=== PATIENT | male | born 1975 | race Caucasian/White ===

== ENCOUNTER 2021-01-28 14:03 | Outpatient (CLI) | payer OTHER, SELFPAY ==
--- NOTE | ~2021-01-28 | MR_ITS ---
EXAMINATION: MR shoulder RT wo con DATE: 01/28/2021 14:57 INDICATION: Right shoulder pain post injury one month prior TECHNIQUE: Magnetic resonance imaging (MRI) of the right shoulder was performed without intravenous c ontrast. Sequences included axial PD-weighted FS FSE, coronal oblique PD-weighted FS FSE, coronal obl ique T2-weighted FS FSE, sagittal PD-weighted FS FSE, and sagittal T1-weighted SE. COMPARISON: None. FINDINGS: Coracoacromial arch: The acromion undersurface is curved in morphology (type II). The coracoacromial ligament is normal. M ild acromioclavicular osteoarthritis. Rotator cuff: The supraspinatus, infraspinatus and teres minor tendons are normal. The subscapularis tendon is norm al. Normal rotator cuff muscle bulk and signal. Biceps tendon, glenoid labrum and glenohumeral cartilage: Long head of the biceps tendon is normal. There is a tear at the 12:00-10:00 position of the posterio r superior glenoid labrum. There is an additional small tear at the 6:00 position of the inferior gle noid labrum. Tiny osteophytes along the anteroinferior rim of the glenoid. Glenohumeral cartilage is normal. Fluid: Physiologic amount of fluid in the glenohumeral joint and biceps tendon sheath. No loose osteochondra l bodies. Mild increased fluid signal in the subacromial/subdeltoid bursa consistent with mild bursit is. Bones: Normal marrow signal with no edema, fracture or pathologic marrow replacing process. IMPRESSION: 1. Small tear at the inferior glenoid labrum and more extensive tear at the posterior superior glenoi d labrum. 2. Mild subacromial/subdeltoid bursitis. 3. Mild acromioclavicular osteoarthritis. Reviewed, dictated and finalized at location A. IMPRESSION: 1. Small tear at the inferior glenoid labrum and more extensive tear at the pos terior superior glenoid labrum. 2. Mild subacromial/subdeltoid bursitis. 3. Mild acromioclavicular osteoarthritis.
== END 2021-01-28 14:04 | disposition home or self-care (01) ==
PROVIDERS: Visit Provider Nurse Practitioner Family
DX: M25.511 Pain in right shoulder (principal); S43.431A Superior glenoid labrum lesion of right shoulder, initial encounter; M75.51 Bursitis of right shoulder; M19.011 Primary osteoarthritis, right shoulder
CPT/HCPCS: 73221

== ENCOUNTER 2022-12-15 18:18 | Emergency (ER) | payer BC, SELFPAY ==
--- NOTE | ~2022-12-15 | XR_ITS ---
EXAM: XR foot RT min 3V DATE: 12/15/2022 18:46 HISTORY: right heel pain x 2 days no injury . COMPARISON: None available. FINDINGS: Normal mineralization. No fracture or dislocation. No lytic or blastic lesion. Joint space s are maintained. No erosion or periosteal change. Soft tissues within normal limits. IMPRESSION: No acute osseous finding in the right foot. Reviewed, dictated and finalized at location K.
[2022-12-15 18:31] VITALS: BP 139/94; PULSE 96; RESP 16; TEMP 36.4; O2SAT 100
[2022-12-15 18:35] VITALS: BP 139/94; PULSE 96; RESP 16; TEMP 36.4; O2SAT 100
--- NOTE | 2022-12-15 19:03 | ED.GENADULT ---
HPI - General Adult General Chief complaint: Extremity Injury, Lower Stated complaint: Injured right foot Time Seen by Provider: 12/15/22 19:10 Source: patient, RN notes reviewed and old records reviewed Mode of arrival: ambulatory (placed in wheelchair on arrival) Limitations: no limitations History of Present Illness HPI narrative: 47 year old male accompanied by presents to express care with complaints of right heel pain for the past 2 days.Patient reports of no known injury to foot thinks he might of stepped off ladder wrong bur is unsure. Patient reports that he can not apply any weight to his heel area.Patient reports that he has had gout in the past but was in his hands and he is on daily Allopurinol. Patient has no posterior heel pain or any pain to frontal aspect of his foot. Patient does have history of rheumatoid arthritis. MD complaint: right heel pain Onset (ago): day(s) (2) Location: right and lower extremity (heel region of foot) Severity: severe Severity scale (1-10): 10 Quality: other (soreness) Pain Consistency: other (with ambulation) Exacerbating factors: other (weight bearing) Related Data Home Medications Medication Instructions Recorded Confirmed trazodone 150 mg tablet 150 mg PO BID 03/15/20 12/15/22 allopurinol 200 mg tablet 200 mg PO DAILY 03/20/22 12/15/22 folic acid 1 mg tablet 1 mg PO DAILY 04/02/22 12/15/22 meloxicam 15 mg tablet 15 mg PO DAILY 04/02/22 12/15/22 methotrexate sodium 5 mg tablet 2.5 mg PO WEEKLY 04/02/22 12/15/22 prednisone 5 mg tablet 5 mg PO DAILY 04/02/22 12/15/22 tramadol 50 mg tablet 50 mg PO Q6H PRN Moderate Pain 04/02/22 12/15/22 (Scale Score 5-6) cariprazine 1.5 mg capsule 1.5 mg PO DAILY 12/15/22 12/15/22 (Vraylar) fluticasone furoate 100 25 inh inhalation DAILY 12/15/22 12/15/22 mcg-vilanterol 25 mcg/dose inhalation powder (Breo Ellipta) lamotrigine 25 mg tablet 25 mg PO DAILY 12/15/22 12/15/22 naltrexone 4.5 mg capsule 1.5 mg PO DAILY 12/15/22 12/15/22 Allergies Allergy/AdvReac Type Severity Reaction Status Date / Time No Known Allergies Allergy Verified 12/15/22 18:30 Review of Systems Review of Systems: CONSTITUTIONAL: Denies fever, chills, or sweats. EYES: Denies visual changes, redness, or discharge. ENT: Denies rhinorrhea, congestion, sore throat, or otalgia. CARDIOVASCULAR: Denies chest pain, palpitations, or edema. RESPIRATORY: Denies cough or dyspnea. GASTROINTESTINAL: Denies abdominal pain, nausea, vomiting, or diarrhea. GENITOURINARY: Denies dysuria or hematuria. SKIN: Denies rash or itching. MUSCULOSKELETAL: Denies back pain, Positive for right heel pain or myalgia. NEUROLOGIC: Denies headache, numbness, or weakness. PSYCHIATRIC: Denies anxiety or depression. All systems reviewed & are unremarkable except as noted in HPI and below PMFSH Past Medical History Medical History (Updated 12/16/22 @ 14:49 by Monica Hill NP) Hyperuricemia Hypotestosteronism Infection of tooth Inflammatory polyarthropathy Internal derangement of left shoulder MOOK (obstructive sleep apnea) Rheumatoid arthritis Right inguinal hernia Umbilical hernia without obstruction and without gangrene Surgical History Surgical History (Updated 12/16/22 @ 14:48 by Monica Hill NP) H/O right inguinal hernia repair Family History Family History Mother Family history of malignant neoplasm of breast in first degree relative Father Family history of malignant neoplasm of urinary bladder Other Depression Social History Social History Smoking packs per day: 1 Smoking cigarettes per day: 20.0 Years smoked: 13 Smoking pack-years: 13.00 Smoking status: Former smoker Tobacco type: cigarettes Smoking end date: 05/18/12 Alcohol intake: current Alcohol use details: rare Substance use: never Substance use type: does not us
== END 2022-12-15 19:26 | disposition home or self-care (01) ==
PROVIDERS: Emergency Provider Registered Nurse; PCP Nurse Practitioner Family
DX: M79.671 Pain in right foot (principal); Z87.891 Personal history of nicotine dependence; M06.9 Rheumatoid arthritis, unspecified; M10.9 Gout, unspecified
CPT/HCPCS: 73630; 99213; G0463

== ENCOUNTER 2023-01-08 11:58 | Emergency (ER) | payer BC, SELFPAY ==
[2023-01-08 12:07] VITALS: BP 127/96; PULSE 98; RESP 18; TEMP 36.7; O2SAT 97
--- NOTE | 2023-01-08 12:12 | ED.DENTAL ---
HPI - Dental/Oral General Chief complaint: Dental/Oral Stated complaint: Toothache;Right jaw swollen Time Seen by Provider: 01/08/23 12:12 Source: patient Mode of arrival: ambulatory History of Present Illness HPI Narrative: 47-year-old male presented for complaint of right upper dental pain and gum swelling worsening over the past 3 days. At the onset he took 2 leftover steroids from the Medrol [facility] which helps with inflammation. Not taking anything else for pain. Endorses 'bad teeth' and hx occasional dental abscesses. He denies nausea vomiting, fevers or chills. He has a dentist who offered appt for next week. MD Complaint: tooth pain Related Data Home Medications Medication Instructions Recorded Confirmed allopurinol 200 mg tablet 200 mg PO DAILY 03/20/22 01/08/23 folic acid 1 mg tablet 1 mg PO DAILY 04/02/22 01/08/23 meloxicam 15 mg tablet 15 mg PO DAILY 04/02/22 01/08/23 methotrexate sodium 5 mg tablet 2.5 mg PO WEEKLY 04/02/22 01/08/23 cariprazine 1.5 mg capsule 1.5 mg PO DAILY 12/15/22 01/08/23 (Vraylar) fluticasone furoate 100 25 inh inhalation DAILY 12/15/22 01/08/23 mcg-vilanterol 25 mcg/dose inhalation powder (Breo Ellipta) lamotrigine 25 mg tablet 25 mg PO DAILY 12/15/22 01/08/23 naltrexone 4.5 mg capsule 1.5 mg PO DAILY 12/15/22 01/08/23 Allergies Allergy/AdvReac Type Severity Reaction Status Date / Time No Known Allergies Allergy Verified 01/08/23 12:13 Review of Systems Review of Systems: CONSTITUTIONAL: Denies body aches, fever, chills ENT: Denies rhinorrhea, congestion, sore throat, or otalgia. Reports dental pain CARDIOVASCULAR: Denies chest pain, palpitations RESPIRATORY: Denies cough or dyspnea. SKIN: Denies rash, itching, or wounds. MUSCULOSKELETAL: Denies myalgia. NEUROLOGIC: Denies headache, numbness, tingling, or weakness. PMF Past Medical History Medical History Hyperuricemia Hypotestosteronism Infection of tooth Inflammatory polyarthropathy Internal derangement of left shoulder MOOK (obstructive sleep apnea) Rheumatoid arthritis Right inguinal hernia Umbilical hernia without obstruction and without gangrene Surgical History Surgical History H/O right inguinal hernia repair Family History Family History Mother Family history of malignant neoplasm of breast in first degree relative Father Family history of malignant neoplasm of urinary bladder Other Depression Social History Social History Smoking packs per day: 1 Smoking cigarettes per day: 20.0 Years smoked: 13 Smoking pack-years: 13.00 Smoking status: Former smoker Tobacco type: cigarettes Smoking end date: 05/18/12 Alcohol intake: current Alcohol use details: rare Substance use: never Substance use type: does not use Living arrangements: with family Occupation/Education: occupation Gender identity (if verbalized by the patient): Male Comments At time of signature, I have reviewed and agree with nursing past medical, surgical, social and family history unless otherwise noted. Please see nursing chart for further information. There is no relevant family history pertinent to the presenting complaint Exam Narrative: GENERAL: Appears in pain; no acute distress. HEAD: Normocephalic, atraumatic. EYES: EOMI. No redness or drainage. Conjunctivae normal. ENT: Dental pain location of #5 broken tooth with abscess, gum swelling and tenderness; poor dentition throughout Mucous membranes pink and moist. TMs normal bilaterally. Throat normal. Uvula midline. NECK: Normal AROM. No lymphadenopathy.No induration below mandible. CHEST: No respiratory distress. Clear to auscultation. HEART: Regular rate and rhythm. No murmur appreciated. SKIN: Warm, dry,
== END 2023-01-08 12:27 | disposition home or self-care (01) ==
PROVIDERS: Emergency Provider Nurse Practitioner Family; PCP Nurse Practitioner Family
DX: K04.7 Periapical abscess without sinus (principal); M06.9 Rheumatoid arthritis, unspecified; Z87.891 Personal history of nicotine dependence
CPT/HCPCS: 99213; G0463

== ENCOUNTER 2023-05-22 17:14 | Emergency (ER) | payer BC, SELFPAY ==
--- NOTE | 2023-05-22 17:17 | ED.GENADULT ---
HPI - General Adult General Chief complaint: Extremity Injury, Upper Stated complaint: R HAND PAIN/SWELLING Time Seen by Provider: 05/22/23 17:43 Source: patient, RN notes reviewed and old records reviewed Mode of arrival: ambulatory Limitations: no limitations History of Present Illness HPI narrative: 48-year-old male presents to the [facility] complaints of right hand swelling and pain. Pain started earlier this afternoon. 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 Denies any trauma just was painting lot today. Swelling noted to the dorsal hand dorsal wrist. Decreased range of motion secondary to pain and swelling. No treatment prior to arrival Treatments prior to arrival: none Related Data Home Medications Medication Instructions Recorded Confirmed allopurinol 200 mg tablet 200 mg PO DAILY 03/20/22 05/22/23 folic acid 1 mg tablet 1 mg PO DAILY 04/02/22 05/22/23 cariprazine 1.5 mg capsule 1.5 mg PO DAILY 12/15/22 05/22/23 (Vraylar) fluticasone furoate 100 25 inh inhalation DAILY 12/15/22 05/22/23 mcg-vilanterol 25 mcg/dose inhalation powder (Breo Ellipta) lamotrigine 25 mg tablet 25 mg PO DAILY 12/15/22 05/22/23 naltrexone 4.5 mg capsule 1.5 mg PO DAILY 12/15/22 05/22/23 naproxen 500 mg tablet 500 mg PO DAILY 05/22/23 05/22/23 Allergies Allergy/AdvReac Type Severity Reaction Status Date / Time No Known Allergies Allergy Verified 05/22/23 17:25 Review of Systems Review of Systems: All systems reviewed & are unremarkable except as noted in HPI and below Constitutional: Constitutional: Reports no additional constitutional complaints Eyes: Eyes: Reports no additional eye complaints ENT: Reports system reviewed and no additional complaints, except as documented Cardiovascular: Cardiovascular: Reports no additional cardiovascular complaints, Denies chest pain and Denies dyspnea Respiratory: Respiratory: Reports no additional respiratory complaints, Denies chest congestion, Denies cough and Denies dyspnea Gastrointestinal: Gastrointestinal: Reports no additional gastrointestinal complaints, Denies abdominal pain, Denies nausea and Denies vomiting Musculoskeletal: Musculoskeletal: Reports as per HPI, Reports arthralgias and Reports joint swelling Integumentary/Breasts: Skin/Breast: Reports system reviewed and no additional complaints, except as docu Neurologic: Reports system reviewed and no additional complaints, except as documented Psychiatric: Psychiatric: Reports no additional psychiatric complaints Allergic/Immunologic: Allergic/Immunologic: Reports no additional allergic/immunologic complaints PMFSH Past Medical History Medical History Hyperuricemia Hypotestosteronism Infection of tooth Inflammatory polyarthropathy Internal derangement of left shoulder MOOK (obstructive sleep apnea) Rheumatoid arthritis Right inguinal hernia Umbilical hernia without obstruction and without gangrene Surgical History Surgical History H/O right inguinal hernia repair Family History Family History Mother Family history of malignant neoplasm of breast in first degree relative Father Family history of malignant neoplasm of urinary bladder Other Depression Social History Social History Smoking packs per day: 1 Smoking cigarettes per day: 20.0 Years smoked: 13 Smoking pack-years: 13.00 Smoking status: Former smoker Tobacco type: cigarettes Smoking end date: 05/18/12 Alcohol intake: current Alcohol use details: rare Substance use: never Substance use type: does not use Living arrangements: with family Occupation/Education: occupation Gender identity (if verbalized by the patient): Male Comments At the time of my signature, I reviewed and agree with the jesus
[2023-05-22 17:33] VITALS: BP 136/93; PULSE 95; RESP 16; TEMP 37.2; O2SAT 98
== END 2023-05-22 17:59 | disposition home or self-care (01) ==
PROVIDERS: Emergency Provider Nurse Practitioner; PCP Nurse Practitioner Family
DX: M25.531 Pain in right wrist (principal); M25.431 Effusion, right wrist; Z87.891 Personal history of nicotine dependence; M06.9 Rheumatoid arthritis, unspecified
CPT/HCPCS: 99213; G0463

== ENCOUNTER 2023-07-22 16:32 | Emergency (ER) | payer BC, SELFPAY ==
[2023-07-22 16:38] VITALS: BP 124/98; PULSE 101; RESP 16; TEMP 36.4; O2SAT 98
--- NOTE | 2023-07-22 16:38 | ED.URI ---
HPI - URI/Sore Throat General Chief Complaint: Upper Respiratory Infection Stated Complaint: COUGH/congestion Time Seen by Provider: 07/22/23 16:33 Source: patient Mode of arrival: ambulatory Limitations: no limitations History of Present Illness HPI Narrative: Newton is a 48-year-old male patient presenting to the clinic today with complaints of cough and congestion x4 weeks. He reports he was diagnosed with influenza a 3 weeks ago. Has had a linger cough ever since with some congestion. Denies any shortness of breath or chest pain. Denies fever, chills, or body aches. States he is coughing all day but cough goes away at nighttime when he is sleeping. MD elicited complaint: nasal congestion and other (Cough) Related Data Home Medications Medication Instructions Recorded Confirmed allopurinol 200 mg tablet 200 mg PO DAILY 03/20/22 07/22/23 folic acid 1 mg tablet 1 mg PO DAILY 04/02/22 07/22/23 cariprazine 1.5 mg capsule 1.5 mg PO DAILY 12/15/22 07/22/23 (Vraylar) fluticasone furoate 100 25 inh inhalation DAILY 12/15/22 07/22/23 mcg-vilanterol 25 mcg/dose inhalation powder (Breo Ellipta) lamotrigine 25 mg tablet 25 mg PO DAILY 12/15/22 07/22/23 naltrexone 4.5 mg capsule 3 mg PO DAILY 12/15/22 07/22/23 naproxen 500 mg tablet 500 mg PO DAILY 05/22/23 07/22/23 Allergies Allergy/AdvReac Type Severity Reaction Status Date / Time No Known Allergies Allergy Verified 07/22/23 16:44 Review of Systems Review of Systems: Pertinent positives per HPI. Patient denies any fever, chills, rash, headache, visual changes, dizziness, shortness of breath, chest pain, palpitations, nausea, vomiting, diarrhea, constipation, abdominal pain, or any urinary issues. [facility] Past Medical History Medical History Hyperuricemia Hypotestosteronism Infection of tooth Inflammatory polyarthropathy Internal derangement of left shoulder MOOK (obstructive sleep apnea) Rheumatoid arthritis Right inguinal hernia Umbilical hernia without obstruction and without gangrene Surgical History Surgical History H/O right inguinal hernia repair Family History Family History Mother Family history of malignant neoplasm of breast in first degree relative Father Family history of malignant neoplasm of urinary bladder Other Depression Social History Social History Smoking packs per day: 1 Smoking cigarettes per day: 20.0 Years smoked: 13 Smoking pack-years: 13.00 Smoking status: Former smoker Tobacco type: cigarettes Smoking end date: 05/18/12 Alcohol intake: current Alcohol use details: rare Substance use: never Substance use type: does not use Living arrangements: with family Occupation/Education: occupation Gender identity (if verbalized by the patient): Male Comments At the time of my signature, I reviewed and agree with the nursing past medical, surgical, social, and family history. There is no relevant family history pertinent to the patient complaint. Exam Narrative: General: Well-developed, well nourished, in no apparent distress Head: Normocephalic, atraumatic Eyes: Pupils equally round and reactive to light bilaterally, EOM intact, sclera and conjunctive clear, no discharge, lids normal Ears: TMs intact and clear, ear canals clear, no drainage, grossly hearing normal. Nose: Nares patent, no discharge, no inflammation, no sinus tenderness. Mouth: Oral pharynx without lesions or masses, good dentition, MMM. Neck: Supple, trachea midline, no enlargement of anterior or posterior cervical nodes, no thyroid masses or goiter palpable. Cardio: Regular rate and rhythm, s1 and s2 normal, no murmur appreciated. Resp: Clear to auscultation bilaterally, no rhonchi, ral
== END 2023-07-22 16:53 | disposition home or self-care (01) ==
PROVIDERS: Emergency Provider Nurse Practitioner Family; PCP Nurse Practitioner Family
DX: R05.9 Cough, unspecified (principal); Z87.891 Personal history of nicotine dependence; M06.9 Rheumatoid arthritis, unspecified
CPT/HCPCS: 99213; G0463

== ENCOUNTER 2023-08-04 15:17 | Emergency (ER) | payer BC, SELFPAY ==
--- NOTE | ~2023-08-04 | CT_ITS ---
EXAMINATION: CTA chest PE protocol DATE: 08/04/2023 17:13 INDICATION: cp, sob, elev dimer TECHNIQUE: Computed tomography angiography (CTA) of the chest was performed with 100 mL Omnipaque-350 intravenous contrast timed to evaluate the pulmonary arteries. Coronal maximum intensity projection 3D-reconstructions were created by the technologist. The dose-length product (DLP) was 417.14 mGy-cm. Automated exposure control and iterative reconstruction technique were employed. COMPARISON: X-ray chest, same date. FINDINGS: Lung parenchyma and airways: Mild diffuse patchy areas of groundglass opacities in the lungs. Patent airways. Pleura: Unremarkable. Thoracic inlet, axillae and chest wall: Unremarkable. Thoracic aorta: No significant dilation. No dissection. Mediastinum: Normal. Heart and pericardium: Normal. Coronary artery calcifications: Absent. Upper abdomen: No significant finding. Bones: No acute osseous finding. Pulmonary arteries: Study quality: Adequate. No pulmonary emboli detected. IMPRESSION: No CT evidence of acute pulmonary embolus. Mild diffuse patchy ground glass opacities in the lungs, may represent mild edema or mosaic attenuati on (as can be seen with asthma, bronchiolitis obliterans, and hypersensitivity pneumonitis). Reviewed, dictated and finalized at location K. IMPRESSION: No CT evidence of acute pulmonary embolus. Mild diffuse patchy ground glass opacities in the lungs, may represent mild jade ma or mosaic attenuation (as can be seen with asthma, bronchiolitis obliterans, and hypersensitivity pneumonitis).
--- NOTE | ~2023-08-04 | XR_ITS ---
EXAMINATION: XR chest 2V 08/04/2023 15:46 INDICATION: Cough. Influenza A. PROCEDURE: 2 view chest COMPARISON: 03/20/2022 FINDINGS: The lungs are clear. The cardiomediastinal silhouette is within normal limits. There are no pleural effusions. There is no pneumothorax suspected. IMPRESSION: 1: NO ACUTE CARDIOPULMONARY DISEASE. Reviewed, dictated and finalized at location A.
[2023-08-04 15:21] VITALS: BP 137/87; PULSE 107; RESP 18; TEMP 36.3; O2SAT 98
--- NOTE | 2023-08-04 15:25 | ED.URI ---
HPI - URI/Sore Throat General Chief Complaint: Upper Respiratory Infection <DANNY Isaacs Last Filed: 08/04/23 15:42> Stated Complaint: cough, congestion <DANNY Isaacs Last Filed: 08/04/23 15:42> Time Seen by Provider: 08/04/23 15:25 <DANNY Isaacs Last Filed: 08/04/23 15:42> Focused HPI: Patient is a 48 y/o male who presents the ED with report of cough and congestion. Patient reports he was diagnosed with influenza in June. He has had a persistent occasionally productive cough since then. He also complains of chest congestion, chest pain - worse with movement and coughing, difficulty breathing and feeling short of breath - also worse with exertion, sore throat. Denies recent sick contacts. Denies lower extremity pain or swelling. Denies fevers. GENERAL: Well-appearing, well-nourished, and in no acute distress. HEAD: Normocephalic, atraumatic. CHEST: Clear to auscultation. ?No respiratory distress. No significant focal lung sounds. HEART: Tachycardic with regular rhythm.? NEURO: ?Alert and oriented x3. Patient screened in triage and initial orders placed.? ?Additional care and disposition to be based upon?diagnostic testing and treatment. <Alethea Bundy PA-C - Last Filed: 08/04/23 15:42> Source: patient <DANNY Isaacs Last Filed: 08/04/23 15:42> Mode of arrival: ambulatory <DANNY Isaacs Last Filed: 08/04/23 15:42> Limitations: no limitations <DANNY Isaacs Last Filed: 08/04/23 15:42> History of Present Illness HPI Narrative: 48-year-old male with reported history of type 2 diabetes, asthma and a intermittent unknown lung disease presents to emergency department with his at bedside for cough and congestion for 2 weeks. Patient was diagnosed with influenza in June of 2023. Patient states he had a cough lingered for few weeks after that, it went away for few weeks and has now come back. He states it has been constant and he is coughing up productive mucus. Reports he went to an urgent care in another ER prior to his arrival today and was prescribed steroids and benzonatate without improvement. He is currently on a steroid taper. He denies fevers, nausea or vomiting. He reports some shortness of breath. Also states he has chest pain that is substernal but only occurs when he is coughing. Is nonradiating. He reports a sore throat which she is attributing to coughing. Denies lower extremity edema or pain, recent surgeries or hospitalizations. he has a crossbow maker at [facility], Dr. Bailey, who performed PFT on him in February 2023. Patient states this PFT was normal and was prescribed an albuterol inhaler for his symptoms. Patient states he has multiple available inhalers and does not need a refill and he has been using them as directed. He is scheduled to see Dr. Pena in 6 days for follow-up. <Debbie Biggs PA-C - Last Filed: 08/04/23 18:21> Related Data Home Medications: Home Medications Medication Instructions Recorded Confirmed allopurinol 200 mg tablet 200 mg PO DAILY 03/20/22 07/22/23 folic acid 1 mg tablet 1 mg PO DAILY 04/02/22 07/22/23 cariprazine 1.5 mg capsule 1.5 mg PO DAILY 12/15/22 07/22/23 (Vraylar) fluticasone furoate 100 25 inh inhalation DAILY 12/15/22 07/22/23 mcg-vilanterol 25 mcg/dose inhalation powder (Breo Ellipta) lamotrigine 25 mg tablet 25 mg PO DAILY 12/15/22 07/22/23 naltrexone 4.5 mg capsule 3 mg PO DAILY 12/15/22 07/22/23 naproxen 500 mg tablet 500 mg PO DAILY 05/22/23 07/22/23 <DANNY Isaacs Last Filed: 08/04/23 15:42> Allergies/Adverse Reactions: Allergies Allergy/AdvReac Type Severity Reaction Status Date / Time No Known Allergies Allergy Verified 08/04/23 16:49 <DANNY Isaacs Last Filed: 08/04/23 15:42> Review of Systems Review of Systems: CONSTITUTIONAL
--- NOTE | 2023-08-04 15:27 | ECG_ITS ---
Measurements Intervals [place] Rate: 103 P: 38 OK: 127 QRS: 87 QRSD: 91 T: 77 QT: 314 QTc: 411 Interpretive Statements SINUS TACHYCARDIA POSSIBLE LEFT ATRIAL ENLARGEMENT BORDERLINE T WAVE ABNORMALITY- HIGH LATERAL LEADS BASELINE ARTIFACT- I, III, AVR, AVL, AVF BORDERLINE ECG NO PREVIOUS ECG AVAILABLE FOR COMPARISON Electronically Signed On 08-04-2023 16:27:08 CDT by Toby Faust D.O.
[2023-08-04 16:05] LABS: Basophils Absolute Auto 0.1 K/mm3 (0.0-0.1); Basophils Percent Auto 0.6 % (0.2-1.2); Eosinophils Absolute Auto 0.4 K/mm3 (0-0.3); Eosinophils Percent Auto 1.7 % (0-4.4); Hematocrit 46.5 % (42.0-52.0); Hemoglobin 14.9 g/dL (14.0-18.0); Immature Granulocyte Absolute 0.26 K/mm3 (0.00-0.031); Immature Granulocyte Percent A 1.3 % (0-0.5); Lymphocytes Absolute Auto 3.38 K/mm3 (0.9-3.2); Lymphocytes Percent Auto 16.4 % (18.3-44.2); Mean Corpuscular Hemoglobin 27.7 pg (26-34); Mean Corpuscular Volume 86.4 fl (80-100); Mean Platelet Volume 9.4 fl (7.4-10.4); Monocytes Absolute Auto 1.4 K/mm3 (0.1-0.6); Monocytes Percent Auto 6.7 % (2.6-8.5); Neutrophils Absolute Auto 15.2 K/mm3 (1.3-6.7); Neutrophils Percent Auto 73.3 % (45.5-73.1); Platelet Count Result 374 k/mm3 (150-375); Red Blood Count 5.38 M/mm3 (4.6-6.20); White Blood Count 20.7 K/mm3 (4.5-10.0)
[2023-08-04 16:08] LABS: Alanine Aminotransferase 28 U/L (6-50); Albumin Level 4.1 g/dL (3.5-5.1); Alkaline Phosphatase 98 U/L (38-126); Anion Gap 9 mmol/L (8-16); Aspartate Amino Transferase 23 U/L (17-59); Bilirubin,Total 0.7 mg/dL (0.2-1.3); Blood Urea Nitrogen 15 mg/dL (9-20); Calcium 9.4 mg/dL (8.4-10.2); Carbon Dioxide 28 mmol/L (22-30); Chloride 98 mmol/L (98-107); Estimated CRCL calculation 88 ml/min; Estimated Glomerular Filt Rate > 60; Glucose 262 mg/dL (65-110); Potassium 3.6 mmol/L (3.4-5.0); Sodium 135 mmol/L (137-145)
[2023-08-04 16:17] LABS: INR 0.9; Prothrombin Time 12.3 Seconds (11.1-14.7)
[2023-08-04 16:18] LABS: Partial Thromboplastin Time 30.4 Seconds (22.3-36.8)
[2023-08-04 16:20] LABS: Troponin I < 0.012 ng/mL (0.000-0.034)
[2023-08-04 16:25] LABS: D Dimer 1.47 ug/mL (<0.48)
[2023-08-04 16:48] VITALS: BP 121/98; PULSE 113; RESP 16; O2SAT 97
[2023-08-04 16:49] LABS: Influenza A QL RT-PCR Negative (Negative); Influenza B QL RT-PCR Negative (Negative); RSV RNA, RT-PCR Negative (Negative); SARS-CoV-2 RNA PCR Negative (Negative)
[2023-08-04 16:50] VITALS: O2SAT 98
[2023-08-04 18:03] VITALS: BP 130/87; PULSE 97; RESP 18; TEMP 36.9; O2SAT 97
[2023-08-04] MEDS: AZITHROMYCIN 250 MG TABLET 500 MG PO (18:05)
[2023-08-04] MEDS: AMOXICILLIN/CLAVULANATE K 875-125 MG TAB 1 TABLET PO (18:05)
== END 2023-08-04 18:30 | disposition home or self-care (01) ==
PROVIDERS: Physician Assistant; Emergency Provider Physician Assistant; PCP Nurse Practitioner Family
DX: J15.9 Unspecified bacterial pneumonia (principal); J98.4 Other disorders of lung; Z20.822 Contact with and (suspected) exposure to COVID-19; J45.909 Unspecified asthma, uncomplicated; E11.9 Type 2 diabetes mellitus without complications; G47.33 Obstructive sleep apnea (adult) (pediatric); M06.9 Rheumatoid arthritis, unspecified; Z87.891 Personal history of nicotine dependence
CPT/HCPCS: 36415; 71046; 71275; 80053; 84484; 85025; 85380; 85610; 85730; 87637; 93005; 99284; A9270; Q9967

== ENCOUNTER 2023-09-28 13:54 | Emergency (ER) | payer BC, SELFPAY ==
--- NOTE | ~2023-09-28 | CT_ITS ---
EXAMINATION: CT abdomen pelvis w con DATE: 09/28/2023 15:17 INDICATION: Diffuse abdominal pain and vomiting TECHNIQUE: Computed tomography (CT) of the abdomen and pelvis was performed with 100 mL Omnipaque-350 intravenous contrast. Automated exposure control and iterative reconstruction technique were employe d. The dose-length product was 768.49 mGy-cm. COMPARISON: None FINDINGS: Lung bases are clear. Heart size is normal. No pericardial or pleural effusion. Diffuse hepatic steat osis. Gallbladder, spleen, pancreas, bilateral adrenal glands and kidneys are normal. Bowels includin g the appendix are normal. Small fat-containing umbilical hernia. Small fat-containing left inguinal hernia. Bladder is normal. No free intraperitoneal gas or fluid. No pathologically enlarged abdominal or pelvic lymphadenopathy. Mild lumbar levocurvature with mild spondylosis. IMPRESSION: 1. No acute intra-abdominal/pelvic process. 2. Diffuse hepatic steatosis. 3. Small fat-containing umbilical and left inguinal hernias. Reviewed, dictated and finalized at location B.
[2023-09-28 14:00] VITALS: BP 117/86; PULSE 110; RESP 15; TEMP 36.5; O2SAT 98
--- NOTE | 2023-09-28 14:40 | ED.ABDPAIN ---
HPI - Abdominal Pain General Chief Complaint: Abdominal Pain Stated Complaint: abd pain, n/v Time Seen by Provider: 09/28/23 14:26 Source: patient, RN notes reviewed and old records reviewed Mode of arrival: ambulatory Limitations: no limitations History of Present Illness HPI narrative: This is a 48 year old male who presents for evaluation of abdominal pain with nausea and vomiting. He developed diffuse abdominal pain 1 week ago. He states it initially felt like a dull ache. His pain waxes and wanes. He has been having nausea, vomiting and dry heaves. He also reports small episodes of diarrhea. He reports fever 100.9 F a few days ago. Denies radiation of pain. Currently his pain is 1/10. This morning his pain was severe from 3 am to 7am Related Data Home Medications Medication Instructions Recorded Confirmed allopurinol 200 mg tablet 200 mg PO DAILY 03/20/22 07/22/23 folic acid 1 mg tablet 1 mg PO DAILY 04/02/22 07/22/23 cariprazine 1.5 mg capsule 1.5 mg PO DAILY 12/15/22 07/22/23 (Vraylar) fluticasone furoate 100 25 inh inhalation DAILY 12/15/22 07/22/23 mcg-vilanterol 25 mcg/dose inhalation powder (Breo Ellipta) lamotrigine 25 mg tablet 25 mg PO DAILY 12/15/22 07/22/23 naltrexone 4.5 mg capsule 3 mg PO DAILY 12/15/22 07/22/23 naproxen 500 mg tablet 500 mg PO DAILY 05/22/23 07/22/23 Allergies Allergy/AdvReac Type Severity Reaction Status Date / Time No Known Allergies Allergy Verified 09/28/23 14:42 Review of Systems Constitutional: Constitutional: Denies weakness Cardiovascular: Cardiovascular: Denies syncope, Denies rapid heart rate, Denies irregular heart rhythm, Denies leg edema and Denies dyspnea Respiratory: Respiratory: Denies chest congestion, Denies hemoptysis, Denies excessive phlegm production and Denies dyspnea Gastrointestinal: Gastrointestinal: Reports abdominal pain, Reports bloating, Denies hematochezia, Reports diarrhea, Reports nausea and Reports vomiting Genitourinary: Genitourinary: Denies hematuria, Denies dysuria, Denies penile discharge and Denies testicular pain Musculoskeletal: Musculoskeletal: Denies joint swelling, Denies loss of height and Denies muscle weakness Neurologic: Denies syncope, Denies focal weakness and Denies weakness PMFSH Past Medical History Medical History Hyperuricemia Hypotestosteronism Infection of tooth Inflammatory polyarthropathy Internal derangement of left shoulder MOOK (obstructive sleep apnea) Rheumatoid arthritis Right inguinal hernia Umbilical hernia without obstruction and without gangrene Surgical History Surgical History H/O right inguinal hernia repair Family History Family History Mother Family history of malignant neoplasm of breast in first degree relative Father Family history of malignant neoplasm of urinary bladder Other Depression Social History Social History Smoking packs per day: 1 Smoking cigarettes per day: 20.0 Years smoked: 13 Smoking pack-years: 13.00 Smoking status: Former smoker Tobacco type: cigarettes Smoking end date: 05/18/12 Alcohol intake: current Alcohol use details: rare Substance use: never Substance use type: does not use Living arrangements: with family Occupation/Education: occupation Gender identity (if verbalized by the patient): Male Exam Const: General: no acute distress and alert Nutritional Appearance: well nourished Orientation/consciousness: patient oriented x3 HENMT: Head: normal to inspection Eyes: EOM: EOMs intact bilaterally Resp: Effort & Inspection: normal respiratory effort Auscultation: clear to auscultation bilaterally Cardio: Rate: tachycardic Rhythm: regular rhythm Heart sounds: no murmurs GI: Inspection: di
[2023-09-28 14:45] LABS: Basophils Percent Auto 0.3 % (0.2-1.2); Eosinophils Absolute Auto 0.2 K/mm3 (0-0.3); Eosinophils Percent Auto 1.7 % (0-4.4); Hematocrit 48.4 % (42.0-52.0); Hemoglobin 16.1 g/dL (14.0-18.0); Immature Granulocyte Absolute 0.13 K/mm3 (0.00-0.031); Immature Granulocyte Percent A 0.9 % (0-0.5); Lymphocytes Absolute Auto 2.51 K/mm3 (0.9-3.2); Mean Corpuscular HGB Conc 33.3 g/dl (32-36); Mean Corpuscular Hemoglobin 28.7 pg (26-34); Mean Corpuscular Volume 86.3 fl (80-100); Mean Platelet Volume 9.5 fl (7.4-10.4); Monocytes Absolute Auto 0.8 K/mm3 (0.1-0.6); Monocytes Percent Auto 5.8 % (2.6-8.5); Neutrophils Absolute Auto 10.2 K/mm3 (1.3-6.7); Neutrophils Percent Auto 73.3 % (45.5-73.1); Platelet Count Result 400 k/mm3 (150-375); Red Blood Count 5.61 M/mm3 (4.6-6.20); Red Cell Distribution Width 13.8 % (11.5-14.5); White Blood Count 13.9 K/mm3 (4.5-10.0)
[2023-09-28] MEDS: SODIUM CHLORIDE 0.9% IV 1,000 ML 999 ML IV CONT (14:55)
[2023-09-28] MEDS: ONDANSETRON INJ 4 MG/2 ML VIAL IV PUSH (14:55)
[2023-09-28 15:02] LABS: Alanine Aminotransferase 32 U/L (6-50); Albumin Level 4.4 g/dL (3.5-5.1); Alkaline Phosphatase 63 U/L (38-126); Anion Gap 9 mmol/L (4-12); Aspartate Amino Transferase 29 U/L (17-59); Blood Urea Nitrogen 5 mg/dL (9-20); Calcium 9.4 mg/dL (8.4-10.2); Carbon Dioxide 25 mmol/L (22-30); Chloride 104 mmol/L (98-107); Estimated CRCL calculation 96 ml/min; Estimated Glomerular Filt Rate > 60; Glucose 188 mg/dL (65-110); Lipase 114 U/L (23-300); Sodium 138 mmol/L (137-145)
[2023-09-28 16:27] LABS: Lactic Acid Reflex 1.8 mmol/L (0.7-2.0)
[2023-09-28 16:28] LABS: Appearance Urine Clear (Clear); Bilirubin Urine Negative (Negative); Blood Urine Negative (Negative); Color Urine Yellow (Yellow); Glucose Urine UA Negative (Negative); Ketones Urine Negative (Negative); Leukocyte Esterase Ur Negative LEU/UL (Negative); Nitrate Urine Negative (Negative); Protein Urine Negative (Negative); Urobilinogen Urine 0.2 mg/dL (<2.0); pH Urine 5.5 (5.0-9.0)
[2023-09-28 17:12] LABS: Add Urine Microscopic? NO
[2023-09-28 17:35] VITALS: BP 113/80; PULSE 93; RESP 16; O2SAT 96
== END 2023-09-28 17:35 | disposition home or self-care (01) ==
PROVIDERS: Emergency Medicine; Emergency Provider General Practice; PCP Nurse Practitioner Family
DX: R11.2 Nausea with vomiting, unspecified (principal); R19.7 Diarrhea, unspecified; G47.33 Obstructive sleep apnea (adult) (pediatric); Z87.891 Personal history of nicotine dependence
CPT/HCPCS: 36415; 74177; 80053; 81003; 83605; 83690; 85025; 96361; 96374; 99284; J2405; J7030; Q9967

== ENCOUNTER 2023-11-02 11:45 | Outpatient (CLI) | payer BC, SELFPAY ==
[2023-11-02 12:22] LABS: Basophils Absolute Auto 0.1 K/mm3 (0.0-0.1); Basophils Percent Auto 0.5 % (0.2-1.2); Eosinophils Absolute Auto 0.4 K/mm3 (0-0.3); Eosinophils Percent Auto 2.8 % (0-4.4); Hematocrit 45.3 % (42.0-52.0); Hemoglobin 14.8 g/dL (14.0-18.0); Immature Granulocyte Absolute 0.14 K/mm3 (0.00-0.031); Lymphocytes Percent Auto 13.4 % (18.3-44.2); Mean Corpuscular HGB Conc 32.7 g/dl (32-36); Mean Corpuscular Hemoglobin 28.1 pg (26-34); Mean Corpuscular Volume 86.1 fl (80-100); Mean Platelet Volume 9.3 fl (7.4-10.4); Monocytes Absolute Auto 0.7 K/mm3 (0.1-0.6); Monocytes Percent Auto 5.4 % (2.6-8.5); Neutrophils Absolute Auto 10.3 K/mm3 (1.3-6.7); Neutrophils Percent Auto 76.9 % (45.5-73.1); Platelet Count Result 340 k/mm3 (150-375); Red Blood Count 5.26 M/mm3 (4.6-6.20); Red Cell Distribution Width 13.2 % (11.5-14.5); White Blood Count 13.4 K/mm3 (4.5-10.0)
[2023-11-02 13:20] LABS: Alanine Aminotransferase 30 U/L (6-50); Albumin Level 4.3 g/dL (3.5-5.1); Alkaline Phosphatase 77 U/L (38-126); Anion Gap 10 mmol/L (4-12); Aspartate Amino Transferase 26 U/L (17-59); Bilirubin,Total 0.8 mg/dL (0.2-1.3); Blood Urea Nitrogen 9 mg/dL (9-20); CRP 2.1 mg/dL (<1.0); Calcium 9.4 mg/dL (8.4-10.2); Carbon Dioxide 24 mmol/L (22-30); Chloride 103 mmol/L (98-107); Estimated Glomerular Filt Rate > 60; Glucose 241 mg/dL (65-110); Potassium 3.8 mmol/L (3.4-5.0); Sodium 137 mmol/L (137-145)
[2023-11-02 13:21] LABS: Iron 35 ug/dL (49-181)
[2023-11-02 13:33] LABS: Percent Iron Saturation 10 % (20-50)
[2023-11-02 15:50] LABS: Erythrocyte Sedimentation Rate 8 mm/hr (0-20)
== END 2023-11-02 11:46 | disposition home or self-care (01) ==
PROVIDERS: Nurse Practitioner Family; PCP Nurse Practitioner Family; Visit Provider Internal Medicine Hematology & Oncology
DX: D72.829 Elevated white blood cell count, unspecified (principal); D50.9 Iron deficiency anemia, unspecified
CPT/HCPCS: 36415; 80053; 82728; 83540; 83550; 85025; 85652; 86140; 88184

== ENCOUNTER 2024-04-01 10:21 | Emergency (ER) | payer BC, SELFPAY ==
--- NOTE | ~2024-04-01 | XR_ITS ---
EXAMINATION: XR knee LT min 4V DATE: 04/01/2024 11:42 INDICATION: Left knee pain. Fall. TECHNIQUE: 4 views of left knee were obtained. COMPARISON: None. FINDINGS: Alignment is normal. No fracture. Joint spaces are normal. No knee joint effusion. IMPRESSION: 1. Normal left knee. Reviewed, dictated and finalized at location A. LIANCE ADMINISTRATOR IMPRESSION: 1. Normal left knee.
--- NOTE | ~2024-04-01 | XR_ITS ---
EXAMINATION: XR foot LT min 3V DATE: 04/01/2024 11:42 INDICATION: Left foot pain. Fall. TECHNIQUE: 4 views of left foot were obtained. COMPARISON: None. FINDINGS: Alignment is normal. Fracture. There is mild osteoarthritis of first metatarsophalangeal [place] int. IMPRESSION: 1. Mild osteoarthritis of first metatarsophalangeal joint. Reviewed, dictated and finalized at location A. ED PRODUCTS FINISHER
--- NOTE | ~2024-04-01 | XR_ITS ---
EXAMINATION: XR hip LT min 3V w AP pelvis DATE: 04/01/2024 11:42 INDICATION: Left hip pain. Fall. TECHNIQUE: An anteroposterior view of the pelvis and 3 views of left hip were obtained. COMPARISON: CT abdomen and pelvis 09/28/2023. FINDINGS: Alignment is normal. No fracture. Joint spaces are normal. IMPRESSION: 1. No fracture. Reviewed, dictated and finalized at location A. RWRITING INTERN IMPRESSION: 1. No fracture.
--- NOTE | ~2024-04-01 | XR_ITS ---
EXAMINATION: XR lumbar spine 2-3V DATE: 04/01/2024 11:42 INDICATION: Left-sided low back pain. Fall. TECHNIQUE: 3 views of lumbar spine were obtained. COMPARISON: None. FINDINGS: There is 6 degrees levocurvature of lumbar spine. There are Schmorl's nodes at multiple lev els. There is mild chronic anterior wedging of T12 and L1 vertebral bodies, likely physiologic. Inter vertebral disc heights are normal. There is multilevel mild facet joint osteoarthritis. At L5-S1, the re is severe facet joint osteoarthritis on the left. IMPRESSION: 1. Mild lumbar spondylosis. Reviewed, dictated and finalized at location A. ETIC TESTER IMPRESSION: 1. Mild lumbar spondylosis.
[2024-04-01 10:25] VITALS: BP 120/80; PULSE 110; RESP 20; TEMP 36.4; O2SAT 100
--- NOTE | 2024-04-01 11:13 | ED_ITS ---
HPI - Extremity Problem General Chief complaint: Extremity Problem,Nontraumatic Stated complaint: L leg/foot pain Time Seen by Provider: 04/01/24 11:00 Source: patient Mode of arrival: wheelchair Limitations: no limitations History of Present Illness HPI Narrative: This is a 48-year-old male that presents to the emergency department for left hip pain. 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 No known injuries. When he woke up today he started to experience pain in his left lateral / posterior hip, left knee, as well as left foot. Denies edema, erythema, decreased range of motion or numbness. Related Data Home Medications Medication Instructions Recorded Confirmed allopurinol 200 mg tablet 200 mg PO DAILY 03/20/22 07/22/23 folic acid 1 mg tablet 1 mg PO DAILY 04/02/22 07/22/23 cariprazine 1.5 mg capsule 1.5 mg PO DAILY 12/15/22 07/22/23 (Vraylar) fluticasone furoate 100 25 inh inhalation DAILY 12/15/22 07/22/23 mcg-vilanterol 25 mcg/dose inhalation powder (Breo Ellipta) lamotrigine 25 mg tablet 25 mg PO DAILY 12/15/22 07/22/23 naltrexone 4.5 mg capsule 3 mg PO DAILY 12/15/22 07/22/23 naproxen 500 mg tablet 500 mg PO DAILY 05/22/23 07/22/23 Allergies Allergy/AdvReac Type Severity Reaction Status Date / Time No Known Allergies Allergy Verified 04/01/24 12:23 Review of Systems Review of Systems: CONSTITUTIONAL: Denies fever MUSCULOSKELETAL: Reports back pain, joint pain, and myalgia. NEUROLOGIC: Denies numbness, or weakness. All systems reviewed & are unremarkable except as noted in HPI and below PMFSH Past Medical History Medical History Hyperuricemia Hypotestosteronism Infection of tooth Inflammatory polyarthropathy Internal derangement of left shoulder MOOK (obstructive sleep apnea) Rheumatoid arthritis Right inguinal hernia Umbilical hernia without obstruction and without gangrene Surgical History Surgical History H/O right inguinal hernia repair Family History Family History Mother Family history of malignant neoplasm of breast in first degree relative Father Family history of malignant neoplasm of urinary bladder Other Depression Social History Social History Smoking packs per day: 1 Smoking cigarettes per day: 20.0 Years smoked: 13 Smoking pack-years: 13.00 Smoking status: Former smoker Tobacco type: cigarettes Smoking end date: 05/18/12 Alcohol intake: current Alcohol use details: rare Substance use: never Substance use type: does not use Living arrangements: with family Occupation/Education: occupation Gender identity (if verbalized by the patient): Male Exam Narrative: GENERAL: Well-appearing, well-nourished, and in no acute distress. HEAD: Normocephalic, atraumatic. EYES: EOMI. CHEST: No respiratory distress. HEART: Regular rate EXTREMITIES: Normal range of motion. No edema. Normal DP pulse SKIN: Warm, dry, no rash. NEURO: No focal deficits. Alert and oriented x3. PSYCH: Normal mood and affect Course Course Emergency Course: patient updated on his workup and agrees with plan of care Vital Signs Vital signs: Vital Signs Temperature 97.5 F L 04/01/24 10:25 Pulse Rate 110 H 04/01/24 10:25 Respiratory Rate 20 04/01/24 10:25 Blood Pressure 120/80 04/01/24 10:25 Pulse Oximetry 100 04/01/24 10:25 Oxygen Delivery Room Air 04/01/24 10:25 Temperature 97.7 F 04/01/24 11:35 Pulse Rate 66 04/01/24 11:35 Respiratory Rate 18 04/01/24 11:35 Blood Pressure 158/94 H 04/01/24 11:35 Pulse Oximetry 99 04/01/24 11:35 Oxygen Delivery Room Air 04/01/24 10:25 MDM - Extremity (Nontraumatic) MDM Narrative Medical decision making narrative: Patient presents to the ER for musculoskeletal pain following work yesterday having 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 He is neurovascularly intact. x- rays of the left knee and hip/ pelvis are normal. Left foot x-ray shows mild osteoarthritis at the 1st MTP joint. Lumbar spine x-ray shows mild lumbar spondylosis. patient updated on his workup and agrees with plan of care. He is to follow up with primary provider. He was given warnings to return to the ER Differential Diagnosis Differential diagnosis: Likely other (muscle strain, sciatica, osteoarthritis) Imaging Data Radiologist's impression: ITS Impressions Knee X-Ray 04/01/24 11:43 IMPRESSION: 1. Normal left knee. Foot X-Ray 04/01/24 11:44 IMPRESSION: 1. Mild osteoarthritis of first metatarsophalangeal joint. Hip/Pelvis X-Ray 04/01/24 11:46 IMPRESSION: 1. No fracture. Lumbar Spine X-Ray 04/01/24 11:48 IMPRESSION: 1. Mild lumbar spondylosis. Critical Care Time Critical Care Time Critical Care Time: No Discharge Plan Discharge Clinical Impression: Acute left-sided low back pain Qualifiers: Sciatica presence: with sciatica Sciatica laterality: sciatica of left side Qualified Code(s): M54.42 - Lumbago with sciatica, left side Patient Disposition: Home, Self-Care Condition: Improved Instructions: Osteoarthritis (ED), Back Pain (ED) Additional Instructions: Return to the ER if you experience weakness, numbness, bowel/bladder incontinence, or any other symptoms that are concerning to you Rest, use ice/heat, take anti-inflammatories (Aleve, Ibuprofen, Naproxen, etc) or Tylenol as needed for pain as well as muscle relaxer (Flexeril) as needed for pain. Muscle relaxers can make you drowsy, do not drive if you take this. Lidocaine patch as needed for pain Follow up with your primary care doctor Prescriptions: New cyclobenzaprine 10 mg tablet 10 mg PO TID PRN (Reason: muscle spasm) Qty: 14 0RF lidocaine 5 % adhesive patch,medicated 1 patch topical DAILY PRN (Reason: pain) Qty: 15 0RF Rx Instructions: leave on most painful area for up to 12 hrs No Action fluticasone furoate-vilanterol [Breo Ellipta] 100-25 mcg/dose blister with device 25 inh INHALATION DAILY Vraylar 1.5 mg capsule 1.5 mg PO DAILY lamotrigine 25 mg tablet 25 mg PO DAILY naltrexone 4.5 mg Capsule 3 mg PO DAILY ibuprofen 800 mg tablet 800 mg PO TID PRN (Reason: pain) Qty: 30 0RF benzonatate 200 mg capsule 200 mg PO TID 7 Days Qty: 21 0RF albuterol sulfate 90 mcg/actuation HFA aerosol inhaler 2 puff inhalation Q4-6H PRN (Reason: shortness of breath or wheezing) 30 Days Qty: 8.5 0RF prednisone 10 mg tablet 10 mg PO DAILY Qty: 30 0RF Rx Instructions: 60mg po daily on day 1, 40mg po daily on days 2-4, 30mg po daily on days 5-6, 20mg po daily on days 7-8, 10mg po daily on days 9-10 naproxen 500 mg tablet 500 mg PO DAILY allopurinol 200 mg tablet 200 mg PO DAILY folic acid 1 mg tablet 1 mg PO DAILY amoxicillin-pot clavulanate 875-125 mg tablet 1 tablet PO Q12H Qty: 14 0RF azithromycin 250 mg tablet 250 mg PO DAILY 4 Days Qty: 4 0RF Rx Instructions: start on day 2 of therapy ondansetron 4 mg tablet,disintegrating 4 mg PO Q6H PRN (Reason: nausea and vomiting) Qty: 14 0RF Follow-up/Referrals: FRANDY,RIVKA CARVER [Primary Care Provider] - Stand Alone Forms: Work/School Release IP
[2024-04-01 11:35] VITALS: BP 158/94; PULSE 66; RESP 18; TEMP 36.5; O2SAT 99
[2024-04-01] MEDS: KETOROLAC 30 MG/ML VIAL (*BKC) IM (11:45)
[2024-04-01] MEDS: ACETAMINOPHEN 500 MG TABLET 1000 MG PO (11:45)
[2024-04-01 12:33] VITALS: BP 122/86; PULSE 99; RESP 16; TEMP 36.4; O2SAT 95
== END 2024-04-01 12:36 | disposition home or self-care (01) ==
PROVIDERS: Emergency Provider Physician Assistant; PCP Nurse Practitioner Family
DX: M54.42 Lumbago with sciatica, left side (principal); G47.33 Obstructive sleep apnea (adult) (pediatric); M06.9 Rheumatoid arthritis, unspecified; Z87.891 Personal history of nicotine dependence; M19.072 Primary osteoarthritis, left ankle and foot; M47.816 Spondylosis without myelopathy or radiculopathy, lumbar region
CPT/HCPCS: 72100; 73502; 73564; 73630; 96372; 99284; A9270; J1885

== ENCOUNTER 2025-01-06 13:25 | Outpatient (CLI) | payer OTHER, SELFPAY ==
--- NOTE | ~2025-01-06 | MR_ITS ---
EXAMINATION: MR shoulder LT wo con DATE: 01/06/2025 14:08 INDICATION: Left shoulder pain TECHNIQUE: Magnetic resonance imaging (MRI) of the left shoulder was performed without intravenous contrast. Sequences included axial PD-weighted FS FSE, coronal oblique PD-weighted FS FSE, coronal oblique T2-weighted FS FSE, sagittal PD-weighted FS FSE, and sagittal T1-weighted SE. COMPARISON: None. FINDINGS: Coracoacromial arch: The acromion undersurface is flat in morphology (type I). The coracoacromial ligament is normal. Mild acromioclavicular osteoarthritis. Rotator cuff: The supraspinatus, infraspinatus and teres minor tendons are normal. The subscapularis tendon is normal. Normal rotator cuff muscle bulk and signal. Biceps tendon, glenoid labrum and glenohumeral cartilage: Long head of the biceps tendon is normal. Amorphous increased signal and thickening globular appearance of the posterior superior glenoid labrum consistent with labral degeneration. There are small marginal osteophytes extending to the base of the otherwise intact appearing anteroinferior labrum. Glenohumeral cartilage is normal. Fluid: Physiologic amount of fluid in the glenohumeral joint and biceps tendon sheath. No loose osteochondral bodies. Mild increased fluid signal in the subacromial/subdeltoid bursa consistent with minimal bursitis. Bones: There are 3 small low signal intensity bone islands at the humeral head and one at the acromion. Normal marrow signal with no edema, fracture or abnormal marrow replacing process. IMPRESSION: 1. Degenerative tearing of the posterior superior glenoid labrum and small marginal osteophyte extending into the anteroinferior labrum. 2. Minimal subacromial/subdeltoid bursitis. Reviewed, dictated and finalized at location A. IMPRESSION: 1. Degenerative tearing of the posterior superior glenoid labrum and small prudence inal osteophyte extending into the anteroinferior labrum. 2. Minimal subacromial/subdeltoid bursitis.
== END 2025-01-06 13:26 | disposition home or self-care (01) ==
LOC: GOSHIMG 13:25
PROVIDERS: PCP Orthopaedic Surgery; Visit Provider Orthopaedic Surgery
DX: M25.512 Pain in left shoulder (principal); M75.52 Bursitis of left shoulder
CPT/HCPCS: 73221